=== PATIENT | female | born 1985 | race African-American/Black ===

== ENCOUNTER → 2024-08-02 | Day surgery (SDC) | payer OTHER, SELFPAY ==
[~2024-08-02] MED LIST: Rabies Immune Globulin/PF 300 UNITS/ML VIAL ONE; Rabies Vaccine Human 2.5 UNITS VIAL ONE
== END ==
LOC: BUR/OP 08:59
PROVIDERS: ATTEND Student in an Organized Health Care Education/Training Program
DX: Z29.14 Encounter for prophylactic rabies immune globulin (principal)
CPT/HCPCS: 90375; 90675

== ENCOUNTER → 2024-08-07 | Day surgery (SDC) | payer OTHER ==
[~2024-08-07] MED LIST changes: -Rabies Immune Globulin/PF 300 UNITS/ML VIAL ONE
== END ==
LOC: BUR/OP 11:07
PROVIDERS: ATTEND Emergency Medicine
DX: Z29.14 Encounter for prophylactic rabies immune globulin (principal)
CPT/HCPCS: 90675

== ENCOUNTER → 2024-08-14 | Day surgery (SDC) | payer OTHER | LOC: BUR/OP 12:11 | PROVIDERS: ATTEND Emergency Medicine | DX: Z29.14 Encounter for prophylactic rabies immune globulin (principal) | CPT/HCPCS: 90675 ==